=== PATIENT | female | born 1985 ===

== ENCOUNTER 2020-07-28 13:39 | Inpatient (IN) | payer MEDICAID ==
[2020-07-28] VITALS (7 sets, daily range): BP systolic 110–190; BP diastolic 55–102; BMI 39.0
[~2020-07-28] VITALS: Ht 172.7 cm; Wt 116.1 kg
--- NOTE | ~2020-07-28 | OP ---
PATIENT NAME: SREE TATE MEDICAL RECORD: [id number] :87 LOCATION:[facility] [id number] ADMISSION DATE:07/28/20 SURGEON: DENILSON MIRANDA DO DATE OF OPERATION: 07/28/2020 PREOPERATIVE DIAGNOSES: 35 weeks with severe preeclampsia, pre-gestional diabetes mellitus, nonreassuring heart tracing, biophysical profile 4/8. POSTOPERATIVE DIAGNOSES: 35 weeks with severe preeclampsia, pre-gestional diabetes mellitus, nonreassuring heart tracing, biophysical profile 8. SGA . PRIMARY SURGEON: Denilson Miranda MD ANESTHESIA: Spinal anesthesia by Dr. Toth. PROCEDURE: Primary low transverse via Pfannenstiel incision. FINDINGS: Viable male born at 1634, weight 2530 grams, Apgars 5 and 9. Nuchal cord times 1, vacuum assisted. Light meconium stained fluid. Boggy uterus, status post additional Pitocin and Hemabate IM times 1. SPECIMENS: Placenta and cord pH. ESTIMATED BLOOD LOSS: 850 cc. FLUIDS: 1 liter. URINE OUTPUT: Clear yellow urine. INFECTION PROPHYLAXIS: Clindamycin 900 mg. COMPLICATIONS: None. The patient was counseled on risks and benefits of delivery. The patient agreed to the procedure. DESCRIPTION OF PROCEDURE: The patient was taken to the operating room where spinal anesthesia was administered and found to be adequate. She was prepped and draped in normal sterile fashion and placed in dorsal supine position with leftward tilt. Pfannenstiel skin incision was made with a scalpel and carried down to the underlying layer of fascia with the Bovie. The fascia was incised in the midline and the incision extended laterally with Li scissors. Fascia grasped with Suyapa clamps and rectus muscle dissected off sharply. Rectus muscle was then grasped in the midline with Allises and with scalpel. Peritoneum identified and noted to be free of adherent bowel, bladder and entered bluntly. Peritoneum with gentle traction. Bladder blade was placed. A low transverse incision made on the uterus and extended bluntly. 's head was brought to the incision. Due to maternal obesity, difficult delivery, 's head not delivering, vacuum applied with pop off once and still difficult. Bandage scissors used to extend incision. Vacuum applied and delivered without difficulty. Nuchal cord times 1 noted. Mouth and nose suctioned, cord was clamped and cut and handed to awaiting pediatric nurse. Placenta then delivered manually. Uterus exteriorized and dry lap used to assure complete removal of placental membranes. Hysterotomy reapproximated with OPERATIVE REPORT [id number] SREE TATE 0 Monocryl in a running locked fashion with good hemostasis. Small area of bleeding noted on the left lateral side. A [id number] stitch placed with 0 Vicryl and good hemostasis noted. Posterior cul-de-sac was irrigated to clean out blood clots and irrigated and suctioned clean of blood clots and fluid. Hysterotomy reexamined and noted to be hemostatic. Uterus returned to abdominal cavity. Gutters cleaned with moist laparotomy sponge to remove all clots and fluid. Muscle reapproximated with a 2-0 Monocryl in an interrupted fashion with good hemostasis. Fascia closed in a running fashion with 0 Vicryl. Subcutaneous layer cleaned with a moist laparotomy sponge and any bleeding vessels cauterized. Subcutaneous fat reapproximated with plain gut and skin reapproximated in a subcuticular fashion with 3-0 Monocryl. Steri-Strips and dressing applied. Pressure dressing applied. The patient tolerated the procedure well and was taken to the recovery room in stable condition. TRANSINT:[id number] Voice Confirmation ID: [id number] DOCUMENT ID: [id number] DENILSON MIRANDA DO CC: [id number] DICTATION DATE: 07/28/201917 FIRE POT OPERATOR: 07/28/20 2300 ADM IN [facility] [address] [place] [address]
[~2020-07-28 13:39] MED LIST: FERROUS SULFAT325 MG PO; PRENAVITE1 TAB PO; VALTREX500 MG PO
[2020-07-28 15:22] LABS: BASOPHILS 0.1 % (0-2); EOSINOPHILS 1.4 % (0-7); HEMATOCRIT 39.4 % (36.0-48.0); HEMOGLOBIN 13.4 g/dL (12-16); IMMATURE GRANULOCYTES 0.3 % (0-5); LYMPHOCYTE ABS# 2.18 10x3/uL (1.18-3.74); LYMPHOCYTES 30.9 % (15-50); MCV 91.2 fL (80.0-100.0); MEAN PLATELET VOLUME 13.3 fL (7.4-10.4); MONOCYTES 6.5 % (2-11); NEUTROPHIL ABS# 4.28 10x3/uL (1.56-6.13); NEUTROPHILS 60.8 % (40-80); PLATELET COUNT 201 10x3/uL (130-400); RBC 4.32 10x6/uL (4.00-5.40); RDW 12.7 % (11.5-14.5); WBC 7.1 10x3/uL (4.8-10.8)
[2020-07-28 15:56] LABS: CALC OSMOLALITY 264 mosm/kg (275-300); CALCIUM 8.6 mg/dL (8.5-10.1); CARBON DIOXIDE 23.5 mmol/L (21.0-32.0); CHLORIDE - SERUM 102 mmol/L (98-107); CREATININE - SERUM 0.5 mg/dL (0.6-1.3); GLUCOSE 94 mg/dL (74-106); POTASSIUM - SERUM 5.7 mmol/L (3.5-5.1); SODIUM 133 mmol/L (136-145); UREA NITROGEN 11 mg/dL (7-18); eGFR NON AFRICAN AMERICAN > 90 mL/min (90-120)
[2020-07-28 16:05] LABS: ALBUMIN 2.4 g/dL (3.4-5.0); ALKALINE PHOSPHATASE 102 U/L (30-120); ALT (SGPT) 17 U/L (10-68); BILIRUBIN - DIRECT 0.01 mg/dL (0.00-0.30); BILIRUBIN - INDIRECT 0.35 mg/dL (0.00-1.00); BILIRUBIN - TOTAL 0.36 mg/dL (0.2-1.3); PROTEIN - SERUM 6.4 g/dL (6.4-8.2); URIC ACID 4.7 mg/dL (2.6-7.2)
--- NOTE | 2020-07-28 18:13 | NUR ---
REC'D REPORT FROM LUKE VARELA PACU. PT AA&O X3. VSS. PT REQUESTS THAT RN CHANGE LINENS, PADS, AND CHUX D/T HAVING BM. PT REPORTS THAT HAD DIARRHEA BM AND REQUESTED THAT SHE BE CLEANED PRIOR TO SENIOR HADOOP DEVELOPER LEAVING ROOM. FUNDUS FIRM, MIDLINE AND U1 WITH SMALL AMT RUBRA LOCHIA, HALF DOLLAR CLOT EXPRESSED X1 WITH MASSAGE. RESP REGULAR AND UNLABORED, NO S/S OF DISTRESS NOTED, BREATH SOUNDS CLEAR AND EQUAL BILATERALLY. LARGE DIARRHEA BM NOTED. LINENS, TOWELS, PADS, AND CHUX CHANGED. GOWN CHANGED. BOWEL SOUNDS PRESENT AND HYPOACTIVE X4 QUADS. LOWER TRANSVERSE ABD DRSG CLEAN DRY AND INTACT. KOCH DRAINING TO BEDSIDE, CLEAR LIGHT YELLOW URINE, 200 MLS PRESENT. SCD'S ON AND TO PUMP. POC DISCUSSED WITH PT, VERBALIZES UNDERSTANDING. DENIES PAIN AT THIS TIME. UNABLE TO MOVE BLE. PLACED IN SEMI-FOWLERS POSITION. BED IN LOW POSITION WITH SRUP X2. CALL LIGHT AND PHONE WITHIN REACH.
--- NOTE | 2020-07-28 19:00 | NUR ---
MGSO4 CHECK DONE PER FLOWSHEET. 400 MLS CLEAR LIGHT YELLOW EMPTIED FROM KOCH. PT CONVERSING WITH DELILAH AYALA RN REGARDING CARE. REPORT TO Marla MAURICE, RN AND Luciano JONES RN.
--- NOTE | 2020-07-28 19:48 | NUR ---
BEDSIDE FSBS DONE AT THIS TIME, RESULT OF 82.
--- NOTE | 2020-07-28 20:00 | NUR ---
ASSESSMENT PER FLOW SHEET, VS OBTAINED, IV IN LEFT HAND INTACT WITH NO REDNESS OR EDEMA INFUSING FLUIDS VIA PUMP PER MD ORDERS, SEE EMAR, FF, ML, U/1, PT CLEANED UP WITH WARM WET WASH CLOTHS, SMALL BLEEDING NOTED WITH NO CLOTS, CHUX AND CHIO PAD PLACED, BIKINI INC WITH LARGE DRESSING CDI WITH NO DRAINAGE NOTED, ICE PACK AND SMALL PILLOW PLACED ON ABD, KOCH CATH INTACT DRAINING YELLOW URINE, PT REPORTS FLATUS, PT DENIES PAIN AT THIS TIME, PT INST ON AND VERBALIZES UNDERSTANDING OF FREIGHT REPRESENTATIVE, SCD'S ON AND WORKING PROPERLY, PT REQUESTED AND SERVED H20, INST TO DRINK SMALL AMOUNTS, PT DENIES FURTHER NEEDS
--- NOTE | 2020-07-28 21:00 | NUR ---
MAG CHECK DONE, PT REPORTS PAIN 5-11/03, PT INST ON PUSHING BLOOD BANK ORDER CONTROL CLERK BUTTON, PT STATES "I'M TRYING NOT TO USE IT", PT INST ON KEEPING PAIN UNDER CONTROL, ESPECIALLY WITH HER BP, PT VERBALIZES UNDERSTANDING, PUSHES BUTTON AT THIS TIME
--- NOTE | 2020-07-28 21:15 | NUR ---
PRIYA LAMBERT RN ADM LABETOLOL IV PER MD ORDERS, SEE EMAR
[2020-07-28 21:20] LABS: UDS - AMPHET NEGATIVE QUAL (NEGATIVE); UDS - BARB NEGATIVE QUAL (NEGATIVE); UDS - BENZO NEGATIVE QUAL (NEGATIVE); UDS - COCAINE NEGATIVE QUAL (NEGATIVE); UDS - OPIATE NEGATIVE QUAL (NEGATIVE); UDS - PCP NEGATIVE QUAL (NEGATIVE); UDS - THC POSITIVE QUAL (NEGATIVE)
[2020-07-28 21:21] LABS: PRO/CRE RATIO URINE 3.1 mg/g; PROTEIN - URINE 305.5 mg/dL (0.0-11.9)
--- NOTE | 2020-07-28 22:00 | NUR ---
MAG CHECK DONE
--- NOTE | 2020-07-28 22:07 | NUR ---
DR BELLO ON UNIT, REPORT OF PT'S BP AND PAIN, DR BELLO REPORTS THAT SHE IS GOING TO PUT ORDERS IN FOR LABETOLOL AND TO ADM NOW, CALL HER IF BP IS 160/100, AND OUTPUT LESS THAN 100ML/HR, ORDERS READ BACK AND VERIFIED
--- NOTE | 2020-07-28 22:19 | NUR ---
ADM LABETOLOL PO PER MD ORDERS, SEE EMAR, PT DENIES NEEDS AT THIS TIME, FOB HOLDING INFANT
--- NOTE | 2020-07-28 22:50 | NUR ---
CALLED TO ROOM BY PATIENT, PT REQUESTING SOMETHING SWEET. JELLO PROVIDED AT THIS TIME. NO FURTHER NEEDS IDENTIFIED. WILL CONTINUE TO MONITOR
--- NOTE | 2020-07-28 23:02 | NUR ---
MAG CHECK DONE, PT C/O PAIN, ADM BOLUS PER MD ORDERS, SEE EMAR, PT REQUESTS SCD'S OFF AT THIS TIME, PT STATES "I CAN'T STAND THESE THINGS ON MY LEGS, AND I'M TELLING YOU, THIS IS PROBABLY PART OF MY BP PROBLEMS", SCD'S OFF, VS CONTINUE, PT DENIES FURTHER NEEDS
--- NOTE | 2020-07-28 23:11 | NUR ---
LATE ENTRY: NOTIFY DR BELLO IF MAG LEVEL IS GREATER THAN 8
--- NOTE | 2020-07-28 23:11 | NUR ---
DR BELLO NOTIFIED OF BP OF 156/88, DR BELLO REPORTS TO HOLD ALPRESOLINE AND CALL HER IF BP IS 170/90
--- NOTE | 2020-07-28 23:17 | NUR ---
ADM TYLENOL PER MD ORDERS, SEE EMAR
--- NOTE | 2020-07-28 23:25 | NUR ---
LAB CALLED LABOR UNIT, MAGNESIUM LEVEL AT 4.4
--- NOTE | 2020-07-28 23:47 | NUR ---
DR BELLO CALLED, NEW ORDERS NOTED TO D/C PITOCIN,AND RESTRICT PO FLUIDS TO 200ML.
[2020-07-29] VITALS (11 sets, daily range): BP systolic 135–170; BP diastolic 75–94; Ht 172.7 cm; Wt 116.1 kg
--- NOTE | 2020-07-29 00:04 | NUR ---
GEORGIANA JONES RN TO ROOM FOR MAG CHECK, FSBS AND CHIO CARE
--- NOTE | 2020-07-29 01:00 | NUR ---
MAG CHECK DONE, PT HOLDING , DENIES NEEDS, FOB AT BEDSIDE
--- NOTE | 2020-07-29 02:00 | NUR ---
MAG CHECK DONE, VS CONTINUE, FOB CHANGING DIAPER, PT INST TO USE WARM IN WORKER FOR PAIN, PT PUSHES BUTTON AT THIS TIME
--- NOTE | 2020-07-29 02:04 | NUR ---
DR BELLO NOTIFIED OF BP, ORDERS TO GO AHEAD AND ADM APRESOLINE, SEE ORDERS
--- NOTE | 2020-07-29 02:05 | NUR ---
GEORGIANA JONES, RN TO ROOM TO ADM LENKA
--- NOTE | 2020-07-29 03:00 | NUR ---
PT AWAKE, MAG CHECK DONE, PT ASKS WHEN SHE MIGHT CAN HAVE SOMETHING TO DRINK, INFORMED PT THAT IT WILL PROBABLY BE AFTER SHE COMES OFF OF THE MAG, PT VERBALIZES UNDERSTANDING, DENIES NEEDS AT THIS TIME, FOB ASLEEP AT BEDSIDE
--- NOTE | 2020-07-29 04:30 | NUR ---
MAG CHECK, PT SLIGHTLY TEARY EYED, STATES "I JUST CAN'T BELIEVE HE IS HERE, AND THAT I JUST DIDN'T TAKE CARE OF MYSELF LIKE I SHOULD OF", REASSURED PT THAT INFANT IS DOING GOOD, PT VERBALIZES UNDERSTANDING, PT C/O, WILL ADM BOLUS, PUMPS CLEARED AND KOCH EMPTIED
--- NOTE | 2020-07-29 04:36 | NUR ---
ADM BOLUS PER MD ORDERS, SEE EMAR
--- NOTE | 2020-07-29 04:55 | NUR ---
DR BELLO NOTIFIED, REPORT OF BP, ORDERS FOR PROCARDIA 10MG PO NOW
--- NOTE | 2020-07-29 05:05 | NUR ---
ADM PROCARDIA PO PER MD ORDERS, SEE EMAR
--- NOTE | 2020-07-29 05:22 | NUR ---
NEW VIAL OF MORPHINE TO SPRING MACHINE OPERATOR, SEE EMAR
--- NOTE | 2020-07-29 06:30 | NUR ---
MAG CHECK DONE PER GEORGIANA JONES RN
--- NOTE | 2020-07-29 07:30 | NUR ---
AM ASSESSMENT COMPLETED CHARTED TO FLOWSHEET. FUNDUS FIRM AT U/U WITH LIGHT BLEEDING NOTED WITHOUT CLOTS. BIKINI INCISION COVERED WITH LARGE WHITE BANDAGE THAT IS CLEAR AND DRY. IV TO LEFT HAND INFUSING PER ORDERS. PT RATES PAIN AT 0/10 AT THIS TIME. INFANT TAKEN TO NURSERY VIA CRIB WITH NURSE. SIDE RAIS UP X 2 WITH PHONE AND CALL LIGHT IN REACH.
--- NOTE | 2020-07-29 08:00 | NUR ---
DR. BELLO IN ROOM SPEAKING WITH PT REGARDING PLAN OF CARE. MD AWAITING AM MAGNESIUM LEVEL. PT MAY HAVE CLEAR LIQUID TRAY.
--- NOTE | 2020-07-29 09:45 | NUR ---
DIETARY NOTIFIED FOR CLEAR LIQUID TRAY.
[2020-07-29 10:03] LABS: BASOPHILS 0.1 % (0-2); EOSINOPHILS 0.8 % (0-7); HEMATOCRIT 37.1 % (36.0-48.0); HEMOGLOBIN 12.7 g/dL (12-16); IMMATURE GRANULOCYTES 0.2 % (0-5); LYMPHOCYTES 17.5 % (15-50); MCH 31.4 pg (26.0-34.0); MCHC 34.2 g/dL (31.0-37.0); MCV 91.8 fL (80.0-100.0); MEAN PLATELET VOLUME 12.8 fL (7.4-10.4); MONOCYTES 5.8 % (2-11); NEUTROPHIL ABS# 6.89 10x3/uL (1.56-6.13); NEUTROPHILS 75.6 % (40-80); RBC 4.04 10x6/uL (4.00-5.40); RDW 12.8 % (11.5-14.5)
[2020-07-29 10:20] LABS: PLATELET COUNT 157 10x3/uL (130-400); WBC 9.1 10x3/uL (4.8-10.8)
--- NOTE | 2020-07-29 11:14 | NUR ---
DR EUGENIA CLEMENTE OF CURRENT BLOOD PRESSURE OF 166/84, NEW ORDER RECEIVED FOR CLONIDINE 0.1MG PO X 1 DOSE NOW. RETAKE BLOOD PRESSURE 30-45 MINUTES AFTER MED HAS BEEN GIVEN.
--- NOTE | 2020-07-29 11:30 | NUR ---
clonidine 0.1mg given po. pt rates pain at 0/10, she is very drowsy, she awakes easily and responds when spoken to but falls back to sleep quickly. side rails up x 2 with phone and call light in reach. sig other at bedside with infant in crib.
--- NOTE | 2020-07-29 12:15 | NUR ---
BLOOD PRESSURE 159/89 AFTER MEDS. PT SITTING UP IN BED AND VERY FRUSTRATED ABOUT NOT BEING ABOUT TO EAT SOLID FOODS, REASSURED HER THAT WHEN MAG SULFATE IS TURNED OFF SHE WILL BE ABLE TO HAVE SOLID FOODS. PT HAS NO COMMENT. INFANT IN CRIB AT BEDSIDE, CALL LIGHT IN REACH. SIG OTHER ALSO PRESENT.
--- NOTE | 2020-07-29 13:05 | NUR ---
DR BELLO ON UNIT AND BLOOD PRESSURE REVIEWED, REPORT GIVEN OF PT BEING UPSET ABOUT NOT EATING SOLID FOODS YET, NEW ORDERS RECEIVED TO REPEAT CLONIDINE 0.1MG NOW. SEE EMAR.
--- NOTE | 2020-07-29 14:03 | NUR ---
MEDS GIVEN SCANNED TO EMAR. PT SITTING UP IN BED BONDING WITH . RATES PAIN AT 1/10 AND DENIES HEADACHE OR BLURRED VISION. PHONE AND CALL LIGHT IN REACH.
--- NOTE | 2020-07-29 14:14 | NUR ---
DR BELLO ORDERS ADDITIONAL 100MG LABETALOL TO BE GIVEN NOW.
--- NOTE | 2020-07-29 15:30 | NUR ---
PROCARDIA 10MG PO X 1 DOSE GIVEN AT THIS TIME.
--- NOTE | 2020-07-29 16:32 | NUR ---
DR BELLO TO BEDSIDE, MD REMOVES ABD BANDAGE, ORDERS RECEIVED TO ADVANCE PLAN OF CARE, D/C EMERGENCY DOCTOR AND MAG SULFATE, SALINE LOCK IV AND REMOVE KOCH. PO PAIN MEDS TO BE ENTERED PER MD.
--- NOTE | 2020-07-29 16:44 | NUR ---
MAG SULFATE DISCONTINUED ALONG WITH ESCROW MANAGER. IV NOW SALINE LOCKED. PT IS EATING REGULAR DIET SO WILL RETURN WHEN SHE IS FINISHED TO REMOVE KOCH CATH. RATES PAIN AT 0/10 AT THIS TIME.
--- NOTE | 2020-07-29 17:45 | NUR ---
DR BELLO CALLS UNIT, NEW ORDERS IN [facility] CONSULT HAS BEEN PLACED.
--- NOTE | 2020-07-29 18:40 | NUR ---
Marla JEFFREY RN NOTIFIED OF PT. REQUESTING IV AND KOCH CATH BE DISCONTINUED.
--- NOTE | 2020-07-29 18:50 | NUR ---
PT CALLS OUT TRACTOR OPERATOR BATTERY LIGHT AND IS STANDING IN BATHROOM HOLDING KOCH BAG. PT STATES SHE WANTS KOCH CATH OUT NOW, AND WANTS TO GET IN THE SHOWER NOW. IV IS NOTED TO SALINE LOCKED PREVIOUSLY. 1900 MLS EMPTIED, YELLOW URINE. LINENS PROVIDED FOR SHOWER. PT DENIES ALL OTHER NEEDS AT THIS TIME. SRUP X2, CALL LIGHT AND PHONE WITHIN REACH.
--- NOTE | 2020-07-29 18:55 | NUR ---
REPORT RECEIVED FROM LUKE VICTOR TO ASSUME PATIENT CARE.
--- NOTE | 2020-07-29 19:00 | NUR ---
PATIENT IN SHOWER, SIGNIFICANT OTHER REMAINS AT BEDSIDE. CALL RAHMAN IN REACH
--- NOTE | 2020-07-29 19:56 | NUR ---
PATIENT SHOWERED, DRESSED AND BACK TO BED. SHIFT ASSESSMENT COMPLETED AT THIS TIME.
--- NOTE | 2020-07-29 20:15 | NUR ---
ADMINISTERED MEDICATIONS PER MD ORDERS, SEE EMAR.
--- NOTE | 2020-07-29 21:00 | NUR ---
PATIENT VOIDED 300 ML CLEAR URINE WITH A QUARTER SIZED CLOT NOTED IN URINE HAT.
--- NOTE | 2020-07-29 22:04 | NUR ---
MEDICATION ADMINISTERED PER MD ORDERS, SEE EMAR.
--- NOTE | 2020-07-29 22:10 | NUR ---
FSBS COLLECTED AT THIS TIME, [id number].
--- NOTE | 2020-07-29 23:03 | NUR ---
PATIENT . LUKE JAMES AT BEDSIDE FOR SUPPORT. NO NEEDS IDENTIFIED.
[2020-07-30] VITALS (8 sets, daily range): BP systolic 144–176; BP diastolic 78–94
--- NOTE | 2020-07-30 00:08 | NUR ---
PATIENT PROVIDED WITH DIAPERS AND AN EXTRA PILLOW PER REQUEST.
--- NOTE | 2020-07-30 02:35 | NUR ---
PATIENT SLEEPING WITH EVEN RESPIRATIONS. NO NEEDS IDENTIFIED. WILL CONTINUE TO MONITOR.
--- NOTE | 2020-07-30 03:35 | NUR ---
PAIN MEDICATION ADMINISTERED PER PT REQUEST AND MD ORDERS, SEE EMAR.
--- NOTE | 2020-07-30 03:37 | NUR ---
BP TAKEN AND MEDICATION ADMINISTERED PER MD ORDERS. SEE EMAR.
--- NOTE | 2020-07-30 05:32 | NUR ---
LAB AT BEDSIDE FOR AM DRAW
--- NOTE | 2020-07-30 05:40 | NUR ---
MEDICATION ADMINISTERED PER MD ORDERS, SEE EMAR
[2020-07-30 05:57] LABS: BASOPHILS 0.1 % (0-2); EOSINOPHILS 0.8 % (0-7); HEMATOCRIT 34.8 % (36.0-48.0); HEMOGLOBIN 11.7 g/dL (12-16); IMMATURE GRANULOCYTES 0.2 % (0-5); LYMPHOCYTE ABS# 1.56 10x3/uL (1.18-3.74); MCHC 33.6 g/dL (31.0-37.0); MCV 92.1 fL (80.0-100.0); MEAN PLATELET VOLUME 12.2 fL (7.4-10.4); MONOCYTES 5.8 % (2-11); NEUTROPHIL ABS# 6.53 10x3/uL (1.56-6.13); NEUTROPHILS 75.1 % (40-80); PLATELET COUNT 164 10x3/uL (130-400); RBC 3.78 10x6/uL (4.00-5.40); RDW 12.9 % (11.5-14.5); WBC 8.7 10x3/uL (4.8-10.8)
[2020-07-30 06:19] LABS: ANION GAP 12.6 mmol/L (8-16); CARBON DIOXIDE 22.3 mmol/L (21.0-32.0)
[2020-07-30 06:22] LABS: CREATININE - SERUM 1.1 mg/dL (0.6-1.3); POTASSIUM - SERUM 3.9 mmol/L (3.5-5.1)
[2020-07-30 06:23] LABS: MAGNESIUM - SERUM 3.5 mg/dL (1.8-2.4)
--- NOTE | 2020-07-30 06:23 | NUR ---
ADMNISTERED MEDICATION PER MD ORDERS, SEE EMAR. FSBS COLLECTED AT THIS TIME, [id number].
--- NOTE | 2020-07-30 07:00 | NUR ---
REPORT TO AM SHIFT TO ASSUME PT CARE.
--- NOTE | 2020-07-30 07:30 | NUR ---
DR GRANADOS ON UNIT WITH ROUNDS MADE, ORDERS RECEIVED TO DISCHARGE HOME
--- NOTE | 2020-07-30 08:15 | NUR ---
PT SITTING UP ON SIDE OF THE BED EATING BREAKFAST, WILL CALL WHEN SHE IS FINISHED SO THAT ASSESSMENT AND VITAL SIGNS COULD BE DONE.
--- NOTE | 2020-07-30 09:45 | NUR ---
ASSESSMENT COMPLETED CHARTED TO FLOWSHEET. BIKINI INCISION CLEAN AND DRY WITH STERI STRIPS IN PLACE. FUNDUS FIRM WITH LIGHT BLEEDING AND NO CLOTS NOTED. VSS CHARTED, SHE DENIES HEADACHE OR BLURRED VISION. SALINE LOCK TO LEFT HAND REMOVED WITH CATH INTACT. RATES PAIN AT 3/10 AT THIS TIME. TOWELS PLACED IN BATHROOM SO THAT SHE IS ABLE TO SHOWER WHEN READY. DENIES NEEDS AT THIS TIME.
--- NOTE | 2020-07-30 10:16 | NUR ---
ABDOMINAL BINDER FITTED TO PT. SHE IS ALSO ENCOURAGED TO WALK OUTSIDE OF ROOMS IN TO THE [address] WAY X 2 IF POSSIBLE.
--- NOTE | 2020-07-30 11:30 | NUR ---
PT AND SIG OTHER AMB IN HALLWAY TO WAITING AREA AND BACK TO ROOM. RATES PAIN AT 3/10 BUT DENIES MEDICATON. [facility] IS HERE TO VISIT PT ABOUT POSITIVE THC ON ADMIT.
--- NOTE | 2020-07-30 13:40 | NUR ---
PT AND SIG OTHER AMB OFF UNIT TO VENDING AREA. INFANT IN NURSERY.
--- NOTE | 2020-07-30 15:30 | NUR ---
PT AND SIG OTHER TO NURSERY WITH QUESTIONS ABOUT DISCHARGE AND WHY THEY COULD NOT LEAVE DUE TO [employer]. DR KRAUS TALKS WITH EACH OF THEM AND ATTEMPTS TO EXPLAIN THAT WAS NOT ANYTHING HOSPITAL OR DOCTORS HAD ANY INPUT IN, THAT WAS STATE PROTOCOL WITH POSITIVE DRUG SCREEN. BOTH PT AND SIG OTHER RETURN TO ROOM WITH INFANT BUT CONTINUE TO EXPRESS THEIR FRUSTRATION LOUDLY. VERIFIED THAT [employer] HOG STICKER HAD LEFT HER NUMBER WITH PATIENT, ADVISED PT TO CALL HOG STICKER DIRECTLY TO GET ANSWERS TO HER QUESTIONS.
--- NOTE | 2020-07-30 17:33 | NUR ---
DR GRANADOS NOTIFIED ABOUT SCRIPTS TO D/C HOME WITH. REPORT THAT INFANT COULD NOT DISCHARGE UNTIL HOME VISIT FROM [facility] COMPLETED SO PT WOULD ROOM IN, ORDERS RECEIVED TO KEEP HER INPATIENT STATUS AT THIS TIME.
[2020-07-30] MEDS ORDERED: NORMODYNE / TR200 MG PO ×2 (18:09→18:33)
[2020-07-30] MEDS ORDERED: PROCARDIA XL60 MG PO ×2 (18:19→18:33)
--- NOTE | 2020-07-30 18:30 | NUR ---
Luciano DELUCA CHEMICAL MACHINE TENDER ROUNDS AND E-SCRIPS PT BLOOD PRESSURE MEDS TO HER PHARMACY.
[2020-07-30] MEDS ORDERED: CLONIDINE HCL0.1 MG PO (18:37)
--- NOTE | 2020-07-30 18:45 | NUR ---
REPORT RECEIVED FROM AM SHIFT TO ASSUME PT CARE
--- NOTE | 2020-07-30 18:47 | NUR ---
REPORT TO 7P-7A
[2020-07-30] MEDS ORDERED: NICODERM CQ1 EAC3 TD (18:50)
--- NOTE | 2020-07-30 18:50 | NUR ---
BP MEDICATION ADMINISTERED PER MD ORDERS AT THIS TIME, SEE EMAR
--- NOTE | 2020-07-30 18:51 | NUR ---
ADMINISTERED PERCOCET 5/325MG TWO TABS PO AT THIS TIME PER PT REQUEST AND MD ORDERS.
--- NOTE | 2020-07-30 20:38 | NUR ---
HOUSEKEEPING TO ROOM PER PT REQUEST TO TAKE OUT THE TRASH AND CLEAN THE FLOORS. ALL LINENS CHANGED TO BED AT THIS TIME.
--- NOTE | 2020-07-30 21:15 | NUR ---
PATIENT AMBULATING IN HOSPITAL.
--- NOTE | 2020-07-30 22:04 | NUR ---
PROCARDIA 30MG PO ADMINISTERED PER MD ORDERS, SEE EMAR
--- NOTE | 2020-07-30 22:30 | NUR ---
PERIPADS PROVIDED PER PT REQUEST. NO FURTHER NEEDS IDENTIFIED.
--- NOTE | 2020-07-30 23:59 | NUR ---
PATIENT SITTING UP ON SIDE OF BED HOLDING INFANT AND TALKING QUIETLY TO HIM. BP TAKEN AT THIS TIME. PT DENIES NEEDS. WILL CONTINUE TO MONITOR.
--- NOTE | 2020-07-31 00:58 | NUR ---
REPORT TO NNEKA DIAL RN TO ASSUME PATIENT CARE.
--- NOTE | 2020-07-31 01:20 | NUR ---
PT LYING LEFT LATERAL POSITION RESP EVEN AND UNLABORED, NAD NOTED. WILL MONITOR.
[2020-07-31 03:56] VITALS: BP 163/80
--- NOTE | 2020-07-31 03:57 | NUR ---
ROUNDS COMPLETED, SCHEDULED BP MED GIVEN PER ORDERS-BP 163/80. PT ALSO REPORTS INCISION RELATED PAIN TO LOW ABD AN 8/10 ON NUMERIC PAIN SCALE, PRN MEDS GIVEN WITH SIPS GATORADE. REVIEWED POC INCLUDING BP MANAGEMENT/MONITORING REQUIREMENTS. PT STATES UNDERSTANDING OF ALL INOFRMATION DISCUSSED.
[2020-07-31 04:47] VITALS: BP 145/82
--- NOTE | 2020-07-31 05:35 | NUR ---
AMBULATORY IN ROOM, NAD NOTED. VOIDING WITHOUT DIFFICULTY. WILL MONITOR.
--- NOTE | 2020-07-31 06:35 | NUR ---
FASTING FSBS 99. AMBULATORY IN ROOM AND IN HALLS. NAD NOTED. DENIES C/O PAIN, RESP EVEN AND UNLABORED.
--- NOTE | 2020-07-31 07:00 | NUR ---
REPORT GIVEN TO ONCOMING SHIFT.
--- NOTE | 2020-07-31 07:30 | NUR ---
PT A,A,OX4. VSS. SEE FULL ASSESSMENT PER FLOWSHEET. LOWER TRANSVERSE ABDOMINAL INCISION WITH STERISTRIPS SLIGHTLY MOIST. PERIPAD CHANGED AND PLACED ON INCISION SITE. PT EDUCATED ON KEEPING INCISION CLEAN AND DRY. PT DENIES PAIN. ICE WATER PROVIDED. CALL LIGHT WITHIN REACH. SIG OTHER AT BEDSDIE, SUPPORTIVE AND ATTENTIVE TO IN CRIB.
[2020-07-31 07:32] VITALS: BP 143/83
--- NOTE | 2020-07-31 08:11 | NUR ---
LAB AT DESK, REPORTS THAT HE WAS UNABLE TO OBTAIN ORDERED LABS AFTER 2 STICKS. RN TO BEDSIDE TO DRAW.
--- NOTE | 2020-07-31 08:20 | NUR ---
CBC AND CMP OBTAINED PER THIS RN FROM R HAND TIMES 1 STICK. TAKEN TO LAB. PT DENIES NEEDS AT THIS TIME. PREPARING TO FEED . BED IN LOW POSITION WITH SRUP X2. CALL LIGHT AND PHONE WITHIN REACH. SIGNIFICANT OTHER AT BEDSIDE, SUPPORTIVE AND ATTENTIVE TO PT AND INFANT NEEDS.
[2020-07-31 08:56] LABS: BASOPHILS 0.1 % (0-2); EOSINOPHILS 0.8 % (0-7); HEMATOCRIT 34.6 % (36.0-48.0); HEMOGLOBIN 11.5 g/dL (12-16); IMMATURE GRANULOCYTES 0.3 % (0-5); LYMPHOCYTE ABS# 1.76 10x3/uL (1.18-3.74); LYMPHOCYTES 17.2 % (15-50); MCHC 33.2 g/dL (31.0-37.0); MCV 93.3 fL (80.0-100.0); MEAN PLATELET VOLUME 11.5 fL (7.4-10.4); MONOCYTES 6.4 % (2-11); NEUTROPHIL ABS# 7.68 10x3/uL (1.56-6.13); NEUTROPHILS 75.2 % (40-80); PLATELET COUNT 153 10x3/uL (130-400); RBC 3.71 10x6/uL (4.00-5.40); WBC 10.2 10x3/uL (4.8-10.8)
[2020-07-31 09:07] LABS: CALC OSMOLALITY 267 mosm/kg (275-300); CALCIUM 8.5 mg/dL (8.5-10.1); CARBON DIOXIDE 23.2 mmol/L (21.0-32.0); CHLORIDE - SERUM 101 mmol/L (98-107); CREATININE - SERUM 0.9 mg/dL (0.6-1.3); PHOSPHOROUS 4.9 mg/dL (2.5-4.9); POTASSIUM - SERUM 3.9 mmol/L (3.5-5.1); SODIUM 134 mmol/L (136-145); UREA NITROGEN 14 mg/dL (7-18); eGFR NON AFRICAN AMERICAN 76 mL/min (90-120)
[2020-07-31 09:08] LABS: GLUCOSE 85 mg/dL (74-106); MAGNESIUM - SERUM 1.9 mg/dL (1.8-2.4)
[2020-07-31 10:51] VITALS: BP 143/76
--- NOTE | 2020-07-31 11:01 | NUR ---
MEDICATION ADMINISTERED PER EMAR. ICE WATER PROVIDED. PT DENIES NEEDS AT THIS TIME.
--- NOTE | 2020-07-31 11:36 | NUR ---
CALL RECEIVED FROM DR GRANADOS. DISCUSSED DISCHARGE.
[2020-07-31] MEDS ORDERED: PERCOCET 10-321 EAC1 PO (13:26)
[2020-07-31] MEDS ORDERED: IBUPROFEN600 MG PO (13:26)
--- NOTE | 2020-07-31 14:41 | NUR ---
PT DISCHARGE INSTRUCTIONS GIVEN. PT VERBALIZES UNDERSTANDING.
--- NOTE | 2020-07-31 15:20 | NUR ---
PT OFF THE UNIT VIA WHEELCHAIR WITH INFANT IN CARSEAT. PT STABLE AND DISCHARGED TO HOME.
--- NOTE | 2020-07-31 16:02 | MORECARE ---
CASE MANAGEMENT DISCHARGE SUMMARY PATIENT: SREE CID UNIT: [id number] ADM DATE: 07/28/20 AGE: 35 : 89 SEX: F ROOM/BED: D.1278 AUTHOR: ANTONDOC PHYSICIAN: REFERRING PHYSICIAN: KRISTEN BELLO DO DATE OF SERVICE: 07/31/20 Discharge Plan Patient Name: SREE CID Facility: [facility]:[place] : 1985 Planned Disposition: Anticipated Discharge Date: Discharge Date: 07/31/2020 Expected LOS: Initial Reviewer: [email or web address] Initial Review Date: 07/28/2020 Generated: 07/31/20 5:01 pm Comments DCP- Discharge Planning Updated by [email or web address]: Maryann Oneill on 07/31/20 2:[address] Patient Name: SREE CID Admission Status: Elective Accout number: [id number] Admission Date: 07-28-2020 : 1985 Admission Diagnosis: Attending: GIN Current LOS: 3 Anticipated DC Date: Planned Disposition: Primary Insurance: [place]ID [place] Discharge Planning Comments: MOB: Sree Cid ADDRESS: [address] [place] [address] PHONE: [phone] FOB: KRISTY CANTRELL INFANT NAME: KRISTY CANTRELL PLAN: HOME WITH LIVING ARRANGEMENTS: INFANT WILL BE LIVING WITH VERENA AND MOB'S COUSIN AT ADDRESS LISTED ABOVE HOME SAFE: YES ANY PETS: NO ANY SMOKING IN HOME: VERENA WILL SMOKE OUTSIDE HOME ANY EXCESSIVE DRUG / ETOH USE: NO NOT ANYMORE SMOKE DETECTORS / C02 DETECTOR: YES HEAT SOURCE: ELECTRIC AIR CONDITIONING: YES ANY OTHER CHILDREN: 1ST CHILD TRANSPORTATION: PRIVATE VEHICLE CARSEAT: YES MEDICAID: YES WIC: PLANS TO MAKE APPOINTMENT SATURDAY FEEDING PLAN: FORMULA WATER SOURCE: [facility] - WILL BOIL WATER IF NEEDED FOR FORMULA - PLANS TO USE NURSERY WATER SUPPLIES FOR INFANT: VERENA STATES THAT SHE HAS DIAPERS, CLOTHES, CRIB AND BOTTLES CARE: YES, SINCE SHE FOUND OUT SHE WAS AT 4 MONTHS DRUG USE: VERENA ADMITS USING OF THC WHILE BEING . SHE STATES THAT SHE LAST USED 2 WEEKS AGO AND THAT SHE WAS USING DUE TO LOSS OF APPETITE. CM SPOKE WITH MOB AND SHE STATES THAT SHE IS MOVING IN WITH HER COUSIN WITH INFANT. SHE STATES THAT THE BABY CAME EARLIER THAN EXPECTED AND SHE HASN'T HAD A BABY SHOWER. [facility] HAS ALREADY BEEN IN TO SEE AND EVALUATE. [facility] HAS RELEASED TO BE DISCHARGED WITH MOB. MOB DENIES ANY NEEDS AT THIS TIME. CM WILL CONTINUE TO FOLLOW AND ASSIST NEEDED WITH D/C PLANNING / NEEDS. Last Waxer: Maryann Oneill Patient Name: SREE CID Page [id number] at 1602 All edits/amendments must be made on the electronic document DICTATION DATE: 07/31/20 1602 DYNAMITE SHOOTER: TOM 07/31/20 1602 RPT#: [id number] DC DATE:07/31/20 STATUS: DIS IN [facility] [address] [place] [address] END OF REPORT
--- NOTE | 2020-07-31 18:27 | MORECARE ---
CASE MANAGEMENT DISCHARGE SUMMARY PATIENT: SREE CID UNIT: [id number] ADM DATE: 07/28/20 AGE: 35 : 89 SEX: F ROOM/BED: D.1278 AUTHOR: ANTONDOC PHYSICIAN: REFERRING PHYSICIAN: KRISTEN BELLO DO DATE OF SERVICE: 07/31/20 Discharge Plan Patient Name: SREE CID Facility: [facility]:[place] : 1985 Planned Disposition: Anticipated Discharge Date: Discharge Date: 07/31/2020 Expected LOS: Initial Reviewer: [email or web address] Initial Review Date: 07/28/2020 Generated: 07/31/20 7:26 pm Comments DCP- Discharge Planning Updated by [email or web address]: Maryann Oneill on 07/31/20 2:[address] Patient Name: SREE CID Admission Status: Elective Accout number: [id number] Admission Date: 07-28-2020 : 1985 Admission Diagnosis: Attending: GIN Current LOS: 3 Anticipated DC Date: Planned Disposition: Primary Insurance: MEDICAID [place] Discharge Planning Comments: MOB: Sree Cid ADDRESS: [address] [place] [address] PHONE: [phone] FOB: KRISTY CANTRELL INFANT NAME: KRISTY CANTRELL PLAN: HOME WITH LIVING ARRANGEMENTS: INFANT WILL BE LIVING WITH VERENA AND MOB'S COUSIN AT ADDRESS LISTED ABOVE HOME SAFE: YES ANY PETS: NO ANY SMOKING IN HOME: VERENA WILL SMOKE OUTSIDE HOME ANY EXCESSIVE DRUG / ETOH USE: NO NOT ANYMORE SMOKE DETECTORS / C02 DETECTOR: YES HEAT SOURCE: ELECTRIC AIR CONDITIONING: YES ANY OTHER CHILDREN: 1ST CHILD TRANSPORTATION: PRIVATE VEHICLE CARSEAT: YES MEDICAID: YES WIC: PLANS TO MAKE APPOINTMENT SATURDAY FEEDING PLAN: FORMULA WATER SOURCE: [facility] - WILL BOIL WATER IF NEEDED FOR FORMULA - PLANS TO USE NURSERY WATER SUPPLIES FOR INFANT: VERENA STATES THAT SHE HAS DIAPERS, CLOTHES, CRIB AND BOTTLES CARE: YES, SINCE SHE FOUND OUT SHE WAS AT 4 MONTHS DRUG USE: VERENA ADMITS USING OF [facility]C WHILE BEING . SHE STATES THAT SHE LAST USED 2 WEEKS AGO AND THAT SHE WAS USING DUE TO LOSS OF APPETITE. CM SPOKE WITH MOB AND SHE STATES THAT SHE IS MOVING IN WITH HER COUSIN WITH INFANT. SHE STATES THAT THE BABY CAME EARLIER THAN EXPECTED AND SHE HASN'T HAD A BABY SHOWER. [facility] HAS ALREADY BEEN IN TO SEE AND EVALUATE. [facility] HAS RELEASED TO BE DISCHARGED WITH MOB. MOB DENIES ANY NEEDS AT THIS TIME. CM WILL CONTINUE TO FOLLOW AND ASSIST NEEDED WITH D/C PLANNING / NEEDS. [employer] Turret Lathe Operator: Maryann Foley DP export: 07/31/20 3:02 pm Patient Name: SREE CID Page [id number] at 1827 All edits/amendments must be made on the electronic document DICTATION DATE: 07/31/201826 LIFTER DRIVER: TOM 07/31/201826 RPT#: [id number] DC DATE:07/31/20 STATUS: DIS IN [facility] [address] [place] [address] END OF REPORT
[2020-08-03 11:12] LABS: UDSC - AMPHET Negative ng/mL (Cutoff=1000); UDSC - BARB Negative ng/mL (Cutoff=300); UDSC - BENZO Negative ng/mL (Cutoff=300); UDSC - COC Negative ng/mL (Cutoff=300); UDSC - METH Negative ng/mL (Cutoff=300); UDSC - OPIATES Negative ng/mL (Cutoff=300); UDSC - PCP Negative ng/mL (Cutoff=25); UDSC - PROPOXY Negative ng/mL (Cutoff=300); UDSC - THC Positive (Cutoff=50)
== END 2020-07-31 15:26 | disposition home or self-care (01) | DRG 788 ==
LOC: D.LDO 13:39 → D.LD 15:18
PROVIDERS: Emergency Medicine; ADMIT Obstetrics & Gynecology; ATTEND Obstetrics & Gynecology
PROC: 10D00Z1 Extraction of Products of Conception, Low, Open Approach (ICD-10-PCS; principal; 2020-07-28 15:00)
DX: O14.14 Severe pre-eclampsia complicating childbirth (principal); Z37.0 Single live birth; Z3A.35 35 weeks gestation of pregnancy; O24.429 Gestational diabetes mellitus in childbirth, unspecified control; O36.8330 Maternal care for abnormalities of the fetal heart rate or rhythm, third trimester, not applicable or unspecified; O60.14X0 Preterm labor third trimester with preterm delivery third trimester, not applicable or unspecified; O99.344 Other mental disorders complicating childbirth; F41.9 Anxiety disorder, unspecified